=== PATIENT | female | born 1950 | race Caucasian/White ===

== ENCOUNTER 2017-08-19 07:24 | Emergency (ER) | payer OTHER ==
[2017-08-19] MEDS: predniSONE 20 MG TAB PO (08:03)
== END 2017-08-19 09:20 | disposition home or self-care (01) ==
LOC: FTE 09:20
DX: L29.9 Pruritus, unspecified (principal); Z79.84 Long term (current) use of oral hypoglycemic drugs
CPT/HCPCS: 99284; J7512

== ENCOUNTER 2017-11-07 09:35 | Day surgery (SDC) | payer OTHER ==
[2017-11-07] MEDS ORDERED: PROPOFOL 20 ML (11:08)
[2017-11-07] MEDS ORDERED: FENTAnyl 50 MCG/ML VIAL (11:08)
[2017-11-07] MEDS ORDERED: MIDAZOLAM 1 MG/ML 2 ML INJ (11:08)
== END 2017-11-07 11:55 | disposition home or self-care (01) ==
LOC: GIL 09:35
DX: Z12.11 Encounter for screening for malignant neoplasm of colon (principal); K64.4 Residual hemorrhoidal skin tags; Z86.010 Personal history of colon polyps; E11.9 Type 2 diabetes mellitus without complications; I10 Essential (primary) hypertension
CPT/HCPCS: 45378; 82962

== ENCOUNTER 2017-12-24 05:45 | Inpatient (IN) | payer OTHER ==
[2017-12-24] MEDS ORDERED: SOD CHLORIDE 0.9% 1,000 ML IV (06:00)
[2017-12-24] MEDS ORDERED: CEFAZOLIN 2 GM/50 ML (PMX) 50 ML IVPB ×2 (06:00→09:30)
[2017-12-24 06:42] LABS: ADD MAN DIFF? NO
[2017-12-24 06:53] LABS: BASOPHIL # 0.1 10^3/ul (0.0-0.1); BASOPHILS % 1.1 % (0.0-2.0); EOSINOPHILS # 0.3 10^3/ul (0.0-0.5); HEMATOCRIT 38.7 % (37.0-47.0); HEMOGLOBIN 12.5 g/dl (12.0-16.0); LYMPHOCYTES # 2.7 10^3/ul (0.8-2.9); LYMPHOCYTES % 47.8 % (15.0-51.0); MEAN CORPUSCULAR HEMOGLOBIN 29.5 pg (29.0-33.0); MEAN CORPUSCULAR HGB CONC 32.3 g/dl (32.0-37.0); MEAN CORPUSCULAR VOLUME 91.3 fl (82.0-101.0); MEAN PLATELET VOLUME 9.6 fl (7.4-10.4); MONOCYTE # 0.6 10^3/ul (0.3-0.9); MONOCYTES % 10.5 % (0.0-11.0); NEUTROPHILS % 34.4 % (39.0-77.0); PLATELET COUNT 236 10^3/UL (140-415); RED BLOOD COUNT 4.24 10^6/ul (4.20-5.40); RED CELL DISTRIBUTION WIDTH 11.8 % (11.5-14.5)
[2017-12-24 06:53] LABS: WHITE BLOOD COUNT 5.7 10^3/ul (4.8-10.8)
[2017-12-24] MEDS ORDERED: LIDOCAINE 2% (SDV) 5 ML INJ (07:00)
[2017-12-24 07:12] LABS: INR 0.91; PROTIME 12.3 Sec (11.9-14.9)
[2017-12-24 07:13] LABS: PARTIAL THROMBOPLASTIN TIME 26.8 Sec (25.0-35.0)
[2017-12-24 07:14] LABS: ALANINE AMINOTRANSFERASE 19 IU/L (13-69); ALBUMIN/GLOBULIN RATIO 1.21; ALKALINE PHOSPHATASE 37 IU/L (42-121); ANION GAP 10 (8-16); ASPARTATE AMINO TRANSFERASE 24 IU/L (15-46); BILIRUBIN,INDIRECT 0.4 mg/dl (0-1.1); BILIRUBIN,TOTAL 0.4 mg/dl (0.2-1.3); BLOOD UREA NITROGEN 19 mg/dl (7-20); CALCIUM 9.5 mg/dl (8.4-10.2); CARBON DIOXIDE 32 mmol/L (21-31); CHLORIDE 105 mmol/L (97-110); CREATININE 0.83 mg/dl (0.44-1.00); GLUCOSE 143 mg/dl (70-220); POTASSIUM 4.4 mmol/L (3.5-5.1); SODIUM 143 mmol/L (135-144); TOTAL PROTEIN 7.3 g/dl (6.1-8.1)
[2017-12-24] MEDS ORDERED: PROPOFOL 20 ML (07:19)
[2017-12-24] MEDS ORDERED: ROCURONIUM 50 MG INJ ×2 (07:19→08:16)
[2017-12-24] MEDS: BUPIVACAINE 0.25% (MPF) 30 ML INJ (07:28)
[2017-12-24] MEDS ORDERED: DEXAMETHASONE 4 MG/ML 1 ML INJ (08:16)
[2017-12-24] MEDS ORDERED: ONDANSETRON 4 MG INJ (08:16)
[2017-12-24] MEDS ORDERED: ACETAMINOPHEN 1000MG/100ML IV 100 ML (08:16)
[2017-12-24] MEDS ORDERED: CEFAZOLIN 1 GM INJ (08:17)
[2017-12-24] MEDS ORDERED: SUCCINYLCHOLINE CHLORIDE 100 MG/5 ML SYG IV (08:17)
[2017-12-24] MEDS ORDERED: SUGAMMADEX SODIUM 200 MG/2 ML VIAL IV (09:03)
[2017-12-24] MEDS ORDERED: LABETALOL HCL 20MG INJ IV (09:30)
[2017-12-24] MEDS ORDERED: ONDANSETRON 4 MG INJ IV (09:30)
[2017-12-24] MEDS ORDERED: FENTAnyl 50 MCG/ML VIAL IV ×2 (09:30)
[2017-12-24] MEDS ORDERED: OXYCODONE/ACETAMINOPHEN (5/325) TAB PO ×2 (09:30)
[2017-12-24] MEDS ORDERED: METOCLOPRAMIDE 10 MG INJ IV (09:30)
[2017-12-24] MEDS ORDERED: DIPHENHYDRAMINE 50 MG INJ IV (09:30)
[2017-12-24] MEDS ORDERED: EPHEDrine SULFATE 50 MG/5 ML SYG IV (09:30)
[2017-12-24] MEDS ORDERED: HYDROCODONE/APAP (5/325) TAB PO (09:30)
[2017-12-24] MEDS ORDERED: KETOROLAC 30 MG INJ IV (09:30)
[2017-12-24] MEDS ORDERED: HYDROmorphONE 1 MG/5 ML IV SYRINGE IV ×3 (09:30)
[2017-12-24] MEDS ORDERED: hydrALAzine 20 MG INJ IV (09:30)
[2017-12-24] MEDS ORDERED: ALBUTEROL 0.083% (NEB) 2.5 MG/3 ML AMP HHN (09:30)
[2017-12-24] MEDS ORDERED: MEPERIDINE 25 MG INJ IV (09:30)
[2017-12-24] MEDS: FENTAnyl 50 MCG/ML VIAL IV ×2 (09:34→09:40)
[2017-12-24] MEDS: morphine 2 MG INJ IV ×2 (11:54→17:43)
[2017-12-24] MEDS: SOD CHLORIDE 0.9% 1,000 ML IV ×3 (11:55→23:18)
[2017-12-24 12:07] LABS: ADD MAN DIFF? NO
[2017-12-24 12:09] LABS: WHITE BLOOD COUNT 13.3 10^3/ul (4.8-10.8)
[2017-12-24 12:09] LABS: BASOPHIL # 0.1 10^3/ul (0.0-0.1); BASOPHILS % 0.5 % (0.0-2.0); EOSINOPHILS % 0.2 % (0.0-7.0); HEMATOCRIT 41.4 % (37.0-47.0); HEMOGLOBIN 13.7 g/dl (12.0-16.0); LYMPHOCYTES # 1.3 10^3/ul (0.8-2.9); LYMPHOCYTES % 9.9 % (15.0-51.0); MEAN CORPUSCULAR HEMOGLOBIN 29.9 pg (29.0-33.0); MEAN CORPUSCULAR HGB CONC 33.1 g/dl (32.0-37.0); MEAN CORPUSCULAR VOLUME 90.4 fl (82.0-101.0); MEAN PLATELET VOLUME 9.8 fl (7.4-10.4); MONOCYTE # 0.3 10^3/ul (0.3-0.9); MONOCYTES % 2.3 % (0.0-11.0); NEUTROPHIL # 11.5 10^3/ul (1.6-7.5); PLATELET COUNT 226 10^3/UL (140-415); RED BLOOD COUNT 4.58 10^6/ul (4.20-5.40); RED CELL DISTRIBUTION WIDTH 11.9 % (11.5-14.5)
[2017-12-24 12:36] LABS: ALANINE AMINOTRANSFERASE 25 IU/L (13-69); ALBUMIN 3.8 g/dl (3.3-4.9); ALBUMIN/GLOBULIN RATIO 1.02; ALKALINE PHOSPHATASE 42 IU/L (42-121); ANION GAP 12 (8-16); ASPARTATE AMINO TRANSFERASE 35 IU/L (15-46); BILIRUBIN,INDIRECT 0.3 mg/dl (0-1.1); BILIRUBIN,TOTAL 0.3 mg/dl (0.2-1.3); BLOOD UREA NITROGEN 19 mg/dl (7-20); CARBON DIOXIDE 29 mmol/L (21-31); CHLORIDE 104 mmol/L (97-110); CREATININE 0.75 mg/dl (0.44-1.00); GLUCOSE 180 mg/dl (70-220); POTASSIUM 4.3 mmol/L (3.5-5.1); SODIUM 141 mmol/L (135-144); TOTAL PROTEIN 7.5 g/dl (6.1-8.1)
[2017-12-24] MEDS: INSULIN ASPART [NOVOLOG] 3 ML PEN SC ×3 (12:39→20:57)
[2017-12-24] MEDS: HYDROCHLOROTHIAZIDE 25 MG TAB PO (15:00)
[2017-12-24] MEDS: CEFAZOLIN 2 GM/50 ML (PMX) 50 ML IVPB ×2 (17:43→23:17)
[2017-12-24] MEDS: metFORMIN 500 MG TAB PO (17:43)
[2017-12-24] MEDS: ATORVASTATIN 10 MG TAB PO (20:57)
[2017-12-24] MEDS: LISINOPRIL 20 MG TAB PO (20:58)
[2017-12-24] MEDS: RANITIDINE 150 MG TAB PO (23:37)
[2017-12-25] MEDS: SOD CHLORIDE 0.9% 1,000 ML IV (05:12)
[2017-12-25 05:41] LABS: ADD MAN DIFF? NO
[2017-12-25 05:48] LABS: BASOPHILS % 0.2 % (0.0-2.0); HEMATOCRIT 36.4 % (37.0-47.0); HEMOGLOBIN 12.1 g/dl (12.0-16.0); LYMPHOCYTES # 1.6 10^3/ul (0.8-2.9); LYMPHOCYTES % 12.9 % (15.0-51.0); MEAN CORPUSCULAR HEMOGLOBIN 29.7 pg (29.0-33.0); MEAN CORPUSCULAR HGB CONC 33.2 g/dl (32.0-37.0); MEAN CORPUSCULAR VOLUME 89.4 fl (82.0-101.0); MEAN PLATELET VOLUME 10.4 fl (7.4-10.4); MONOCYTE # 1.1 10^3/ul (0.3-0.9); MONOCYTES % 8.3 % (0.0-11.0); NEUTROPHIL # 9.9 10^3/ul (1.6-7.5); NEUTROPHILS % 78.1 % (39.0-77.0); PLATELET COUNT 224 10^3/UL (140-415); RED BLOOD COUNT 4.07 10^6/ul (4.20-5.40); RED CELL DISTRIBUTION WIDTH 11.9 % (11.5-14.5)
[2017-12-25 05:48] LABS: WHITE BLOOD COUNT 12.7 10^3/ul (4.8-10.8)
[2017-12-25 06:19] LABS: ALANINE AMINOTRANSFERASE 19 IU/L (13-69); ALBUMIN 3.5 g/dl (3.3-4.9); ALBUMIN/GLOBULIN RATIO 1.12; ALKALINE PHOSPHATASE 32 IU/L (42-121); ANION GAP 11 (8-16); ASPARTATE AMINO TRANSFERASE 34 IU/L (15-46); BILIRUBIN,INDIRECT 0.4 mg/dl (0-1.1); BILIRUBIN,TOTAL 0.4 mg/dl (0.2-1.3); BLOOD UREA NITROGEN 17 mg/dl (7-20); CALCIUM 8.6 mg/dl (8.4-10.2); CARBON DIOXIDE 29 mmol/L (21-31); CHLORIDE 107 mmol/L (97-110); GLUCOSE 133 mg/dl (70-220); POTASSIUM 4.6 mmol/L (3.5-5.1); SODIUM 142 mmol/L (135-144); TOTAL PROTEIN 6.6 g/dl (6.1-8.1)
[2017-12-25] MEDS: INSULIN ASPART [NOVOLOG] 3 ML PEN SC ×2 (07:50→11:40)
[2017-12-25] MEDS: HYDROCHLOROTHIAZIDE 25 MG TAB PO (08:24)
[2017-12-25] MEDS: CEFAZOLIN 2 GM/50 ML (PMX) 50 ML IVPB (08:24)
[2017-12-25] MEDS: metFORMIN 500 MG TAB PO (08:24)
[2017-12-25] MEDS ORDERED: LEVALBUTEROL (NEB) 1.25 MG/0.5 ML AMP HHN (10:00)
[2017-12-25] MEDS: PROMETHAZINE/CODEINE 5ML CUP PO (10:45)
[2017-12-25] MEDS: LEVALBUTEROL (NEB) 1.25 MG/0.5 ML AMP HHN (11:22)
== END 2017-12-25 14:10 | disposition home or self-care (01) | DRG 624 ==
LOC: REC 05:45 → MS1 11:30
PROC: 0GTK0ZZ Resection of Thyroid Gland, Open Approach (ICD-10-PCS; principal; 2017-12-24 07:30)
PROC: 0HX4XZZ Transfer Neck Skin, External Approach (ICD-10-PCS; 2017-12-24 07:30)
DX: E05.20 Thyrotoxicosis with toxic multinodular goiter without thyrotoxic crisis or storm (principal); E11.9 Type 2 diabetes mellitus without complications; I10 Essential (primary) hypertension
CPT/HCPCS: 71045; 80053; 82962; 85025; 85610; 85730; 88307; 94664